=== PATIENT | female | born 1995 | race Caucasian/White ===

== ENCOUNTER → 2019-01-09 10:51 | Outpatient (CLI) | payer BC, SELFPAY ==
[2019-01-09 11:29] LABS: Add Manual Diff / Slide Review NO; Basophils Absolute Auto 0 /uL (0-100); Basophils Percent Auto 0.6 % (0-2); Eosinophils Absolute Auto 100 /uL (0-450); Eosinophils Percent Auto 1.2 % (2-4); Hematocrit 42.4 % (36-46); Hemoglobin 14.3 g/dL (12.0-16.0); Lymphocytes Absolute Auto 1400 /uL (1100-4500); Lymphocytes Percent Auto 28.9 % (25-40); Mean Corpuscular HGB Conc 33.9 % (30-36); Mean Corpuscular Volume 88.5 fL (80-100); Monocytes Absolute Auto 400 /uL (0-900); Monocytes Percent Auto 9.2 % (3-14); Neutrophils Absolute Auto 2900 /uL (1500-7000); Neutrophils Percent Auto 60.1 % (50-75); Platelet Count 241 X10^3/uL (150-400); Red Blood Cell Count 4.78 X10^6/uL (4.0-5.2); Red Cell Distribution Width 12.7 % (11.6-14.8); White Blood Cell Count 4.9 X10^3/uL (4.5-11.0)
[2019-01-09 11:54] LABS: Alanine Aminotransferase 22 IU/L (9-52); Aspartate Aminotransferase 27 IU/L (14-36); Cholesterol 156 mg/dL (140-199); HDL Cholesterol 79 mg/dL (40-60); LDL Cholesterol Calculated 63 mg/dL (<100); Triglycerides 70 mg/dL (35-150)
[2019-01-09 12:02] LABS: Pregnancy Test Serum,Qual Negative (Negative)
== END ==
PROVIDERS: Visit Provider Physician Assistant Medical
DX: Z79.899 Other long term (current) drug therapy (principal)
CPT/HCPCS: 36415; 80061; 84450; 84460; 84703; 85025